=== PATIENT | male | born 1995 | race Hispanic/Latino ===

== ENCOUNTER 2017-09-11 19:30 | Emergency (ER) | payer SELFPAY ==
--- NOTE | 2017-09-11 19:50 | ER ---
Nurse's Notes [facility] Name: Stiven Kruger Jr Age: 21 yrs Sex: Male : 1995 Arrival Date: 09/11/2017 Time: 19:34 Bed 23 Private MD: Diagnosis: Abrasion of lower leg;Local infection of the skin and subcutaneous tissue, unspecified Presentation: 09/11 19:40 Presenting complaint: Patient states: left leg itching and pain due to abrasions from ak1 work boots X1 week. pt with steady gait to ER23. Transition of care: patient was not received from another setting of care. Onset of symptoms is unknown. Initial Sepsis Screen: Does the patient meet any 2 criteria? No. Patient's initial sepsis screen is negative. Does the patient have a suspected source of infection? No. Patient's initial sepsis screen is negative. Care prior to arrival: None. 19:40 Method Of Arrival: Ambulatory ak1 19:40 Acuity: GALA 4 ak1 Triage Assessment: 19:41 General: Appears in no apparent distress. Behavior is calm, cooperative. Pain: ak1 Complains of pain in left leg. EENT: No signs and/or symptoms were reported regarding the EENT system. Neuro: No deficits noted. Cardiovascular: No deficits noted. Respiratory: No deficits noted. GI: No signs and/or symptoms were reported involving the gastrointestinal system. : No signs and/or symptoms were reported regarding the genitourinary system. Derm: Reports itching, pain. Musculoskeletal: No signs and/or symptoms reported regarding the musculoskeletal system. Historical: - Allergies: 19:41 No Known Allergies; ak1 - Home Meds: 19:41 None [Active]; ak1 - PMHx: 19:41 None; ak1 - PSHx: 19:41 None; ak1 - Immunization history:: Adult Immunizations unknown. - Social history:: Smoking status: Patient uses tobacco products, denies chronic smoking, but will smoke occasionally. Screenin:43 Abuse screen: Denies threats or abuse. Denies injuries from another. Nutritional ak1 screening: No deficits noted. Tuberculosis screening: No symptoms or risk factors identified. Fall Risk None identified. Assessment: 19:42 General: Appears in no apparent distress. comfortable, Behavior is calm, cooperative, mb3 appropriate for age. Pain: Denies pain. Neuro: No deficits noted. Cardiovascular: No deficits noted. Respiratory: No deficits noted. Respiratory effort is even, unlabored, Respiratory pattern is regular, symmetrical. GI: No signs and/or symptoms were reported involving the gastrointestinal system. : No signs and/or symptoms were reported regarding the genitourinary system. Derm: Reports itching, pain Pain is present only when walking to lower left leg, itching present around wound to left kline. Musculoskeletal: Swelling present in left kline. Injury Description: Abrasion sustained to left kline is pt states was itching and scratched kline open. Wound is aprox 1.5 cm wide and aprox 8 cm long with uneven borders. Vital Signs: 19:41 BP 158 / 82; Pulse 98; Resp 18; Temp 98.7(O); Pulse Ox 98% on R/A; Weight 131.54 kg ak1 (R); Height 6 ft. 2 in. (187.96 cm) (R); Pain 5/10; 19:59 BP 139 / 57; Pulse 93; mb3 19:41 Body Mass Index 37.23 (131.54 kg, 187.96 cm) ak1 ED Course: 19:34 Patient arrived in ED. do 19:40 Shaquille Arredondo MD is Attending Physician. gs 19:41 Cheryl Yoder FNP-C is PHCP. kb 19:41 Triage completed. ak1 19:41 Arm band placed on Patient placed in an exam room, on a stretcher, on pulse oximetry, ak1 Patient notified of wait time. 19:42 Philip Umana, RN is Primary Nurse. mb3 19:43 Patient has correct armband on for positive identification. Bed in low position. Call ak1 light in reach. Side rails up X 1. Pulse ox on. NIBP on. 19:43 No provider procedures requiring assistance completed. ak1 20:00 Patient did not have IV access during this emergency room visit. mb3 Administered Medications: 19:57 Drug: KeFLEX 500 mg Route: PO; mb3 19:58 Follow up: Response: No adverse reaction; No change in condition mb3 Outcome: 19:49 Discharge ordered by . kb 20:00 Discharged to home ambulatory. mb3 20:00 Condition: stable 20:00 Discharge instructions given to patient, Instructed on discharge instructions, follow up and referral plans. medication usage, Demonstrated understanding of instructions, follow-up care, medications, Prescriptions given X 1. 20:00 Patient left the ED. mb3 Signatures: Cheryl Yoder, MICHAELC RAKAN-Brenda Morales, RN RN ak1 Tamar Gilbert Gregory, MD MD Philip Umana RN RN mb3
--- NOTE | 2017-09-11 19:50 | EDPHYS ---
Physician Documentation [facility] Name: Stiven Kruger Jr Age: 21 yrs Sex: Male : 1995 Arrival Date: 09/11/2017 Time: 19:34 Bed 23 Private MD: ED Physician Shaquille Arredondo HPI: 09/11 19:42 This 21 yrs old Male presents to ER via Ambulatory with complaints of Leg Pain.kb 19:42 The patient has a laceration related to: scratched area occurred at work, and there are kb no complicating factors. The injury was accidental. The laceration(s) is(are) located on the left kline. Onset: The symptoms/episode began/occurred yesterday. Associated signs and symptoms: The patient has no apparent associated signs or symptoms. The patient has not experienced similar symptoms in the past. The patient has not recently seen a physician. Moderate sized abrasion noted to left kline due to pt scratching area . Historical: - Allergies: 19:41 No Known Allergies; ak1 - Home Meds: 19:41 None [Active]; ak1 - PMHx: 19:41 None; ak1 - PSHx: 19:41 None; ak1 - Immunization history:: Adult Immunizations unknown. - Social history:: Smoking status: Patient uses tobacco products, denies chronic smoking, but will smoke occasionally. ROS: 19:48 Constitutional: Negative for fever, chills, and weight loss, Cardiovascular: Negative kb for chest pain, palpitations, and edema, Respiratory: Negative for shortness of breath, cough, wheezing, and pleuritic chest pain, Abdomen/GI: Negative for abdominal pain, nausea, vomiting, diarrhea, and constipation, MS/Extremity: Negative for injury and deformity, Neuro: Negative for headache, weakness, numbness, tingling, and seizure. 19:48 Skin: Positive for abrasion(s), of the left kline. Exam: 19:48 Constitutional: This is a well developed, well nourished patient who is awake, alert, kb and in no acute distress. Head/Face: Normocephalic, atraumatic. Chest/axilla: Normal chest wall appearance and motion. Nontender with no deformity. No lesions are appreciated. Cardiovascular: Regular rate and rhythm with a normal S1 and S2. No gallops, murmurs, or rubs. Normal PMI, no JVD. No pulse deficits. Respiratory: Lungs have equal breath sounds bilaterally, clear to auscultation and percussion. No rales, rhonchi or wheezes noted. No increased work of breathing, no retractions or nasal flaring. Abdomen/GI: Soft, non-tender, with normal bowel sounds. No distension or tympany. No guarding or rebound. No evidence of tenderness throughout. MS/ Extremity: Pulses equal, no cyanosis. Neurovascular intact. Full, normal range of motion. Neuro: Awake and alert, GCS 15, oriented to person, place, time, and situation. Cranial nerves II-XII grossly intact. Motor strength 5/5 in all extremities. Sensory grossly intact. Cerebellar exam normal. Normal gait. 19:48 Skin: injury, abrasion(s), moderate sized abrasion noted, of the left kline. Vital Signs: 19:41 BP 158 / 82; Pulse 98; Resp 18; Temp 98.7(O); Pulse Ox 98% on R/A; Weight 131.54 kg ak1 (R); Height 6 ft. 2 in. (187.96 cm) (R); Pain 5/10; 19:59 BP 139 / 57; Pulse 93; mb3 19:41 Body Mass Index 37.23 (131.54 kg, 187.96 cm) ak1 MDM: 19:45 Patient medically screened. kb 19:47 Data reviewed: vital signs, nurses notes. Data interpreted: Pulse oximetry: on room air kb is 98 %. Interpretation: normal. Counseling: I had a detailed discussion with the patient and/or guardian regarding: the historical points, exam findings, and any diagnostic results supporting the discharge/admit diagnosis, the need for outpatient follow up, a family practitioner, to return to the emergency department if symptoms worsen or persist or if there are any questions or concerns that arise at home. Administered Medications: 19:57 Drug: KeFLEX 500 mg Route: PO; mb3 19:58 Follow up: Response: No adverse reaction; No change in condition mb3 Disposition: 09/11/17 19:49 Discharged to Home. Impression: Abrasion of lower leg, Local infection of the skin and subcutaneous tissue, unspecified. - Condition is Stable. - Discharge Instructions: Wound Infection, [id number]. - Prescriptions for Keflex 500 mg Oral Capsule - take 1 capsule by ORAL route every 8 hours for 7 days; 21 capsule. - Medication Reconciliation Form, Thank You Letter, Antibiotic Education, Prescription Opioid Use form. - Follow up: Emergency Department; When: As needed; Reason: Worsening of condition. Follow up: Private Physician; When: 2 - 3 days; Reason: Recheck today's complaints, Continuance of care, Re-evaluation by your physician. Addendum: 09/15/2017 19:50 Co-signature as Attending Physician, Shaquille Arredondo MD. g s Signatures: Cheryl Yoder, RAKAN-C [employer]-Brenda Morales RN RN ak1 Shaquille Arredondo MD MD gs Philip Umana, RN RN mb3 Corrections: (The following items were deleted from the chart) 09/11 20:00 19:49 09/11/2017 19:49 Discharged to Home. Impression: Abrasion of lower leg; Local mb3 infection of the skin and subcutaneous tissue, unspecified. Condition is Stable. Forms are Medication Reconciliation Form, Thank You Letter, Antibiotic Education, Prescription Opioid Use. Follow up: Emergency Department; When: As needed; Reason: Worsening of condition. Follow up: Private Physician; When: 2 - 3 days; Reason: Recheck today's complaints, Continuance of care, Re-evaluation by your physician. kb
[2017-09-11] MEDS ORDERED: CEPHALEXIN 250 MG CAP ONE (19:53)
== END 2017-09-11 20:00 | disposition home or self-care (01) ==
LOC: ER 19:30
DX: S80.812A Abrasion, left lower leg, initial encounter (principal); X58.XXXA Exposure to other specified factors, initial encounter; Y92.89 Other specified places as the place of occurrence of the external cause
CPT/HCPCS: 99283

== ENCOUNTER 2017-09-28 18:13 | Emergency (ER) | payer SELFPAY ==
[2017-09-28 20:21] LABS: Absolute Lymphocytes (CBC) 2.6 K/uL (0.7-4.9); Absolute Monocytes 0.6 K/uL (0.1-1.3); Absolute Neutrophil 5.5 K/uL (1.8-8.0); Basophils % 0.3 % (0-1.3); Eosinophils % 2.6 % (0-4.4); Hematocrit 42.9 % (39.6-49.0); Lymphocytes % 28.7 % (15.3-44.8); MCV 86.2 fL (80-100); MPV 7.9 fL (7.6-11.3); Monocytes % 7.2 % (3.3-12.3); RBC Red Blood Cell Count 4.97 M/uL (4.33-5.43)
[2017-09-28 20:27] LABS: Urine Blood NEGATIVE (NEG); Urine Glucose NEGATIVE (NEG); Urine Protein NEGATIVE (NEG); Urine Specific Gravity 1.025 (1.005-1.030); Urine pH 6.5 (5.0-7.0)
[2017-09-28 20:32] LABS: Bicarbonate 27 mEq/L (21-31); Glucose Level 94 mg/dL (65-120); Lipase 17 U/L (22-51); Potassium 3.9 mEq/L (3.6-5.0); Sodium Level 139 mEq/L (135-145)
[2017-09-28 20:39] LABS: ALT/SGPT 44 IU/L (10-60); AST/SGOT 30 IU/L (10-42); Albumin 4.7 g/dL (3.2-5.5); Alkaline Phosphatase 65 IU/L (42-121); Amylase Level 34 U/L (28-100); BUN Blood Urea Nitrogen 18 mg/dL (6-20); Bilirubin Direct < 0.1 mg/dL (0-0.2); Bilirubin Total 0.5 mg/dL (0.3-1.2); Protein, Total 8.5 g/dL (6.0-8.3)
[2017-09-28 20:40] LABS: Urine Bacteria <20 /HPF (NONE SEEN); Urine Culture Reflex Order NOT NEEDED; Urine RBC <5 /HPF (NONE SEEN)
[2017-09-28 20:41] LABS: Urine Mucus 1+ /HPF (NONE SEEN)
--- NOTE | 2017-09-28 21:44 | RAD REPORT ---
EXAM DESCRIPTION: RAD - Abdomen Single View - 09/28/2017 9:38 pm CLINICAL HISTORY: Pain COMPARISON: None. FINDINGS: The bowel gas pattern is non-obstructive. No evidence of free air or pneumatosis. No suspi cious calcifications. No significant bony findings. IMPRESSION: Negative examination.
--- NOTE | 2017-09-28 21:48 | ER ---
Nurse's Notes [facility] Name: Stiven Kruger Jr Age: 21 yrs Sex: Male : 1995 Arrival Date: 09/28/2017 Time: 18:15 Bed 28 Private MD: Diagnosis: Abdominal tenderness Presentation: 09/28 18:34 Presenting complaint: Patient states: "I have had a pain here (LLQ) for a few days, I lk1 think from lifting on Thursday. Today at work I was lifting some things and I felt a sharp pain in the same spot. I am not having the pain now, but I wanted to get it checked out.". Transition of care: patient was not received from another setting of care. Onset of symptoms was September 26, 2017. Risk Assessment: Do you want to hurt yourself or someone else? Patient reports no desire to harm self or others. Initial Sepsis Screen: Does the patient meet any 2 criteria? No. Patient's initial sepsis screen is negative. Does the patient have a suspected source of infection? No. Patient's initial sepsis screen is negative. Care prior to arrival: None. 18:34 Method Of Arrival: Ambulatory lk1 18:34 Acuity: GALA 3 lk1 Historical: - Allergies: 18:36 No Known Allergies; lk1 - PMHx: 18:36 None; lk1 - PSHx: 18:36 None; lk1 - Immunization history:: Adult Immunizations up to date. - Social history:: Smoking status: Patient uses tobacco products, denies chronic smoking, but will smoke occasionally. Screenin:58 Abuse screen: Denies threats or abuse. Nutritional screening: No deficits noted. tl3 Tuberculosis screening: No symptoms or risk factors identified. Fall Risk None identified. Assessment: 19:58 General: Appears in no apparent distress. comfortable, well groomed, well developed, tl3 well nourished, Behavior is calm, cooperative, appropriate for age. Pain: Complains of pain in lower left abdomen. Neuro: Level of Consciousness is awake, alert, obeys commands, Oriented to person, place, time, situation, Appropriate for age. Cardiovascular: Patient's skin is warm and dry. Respiratory: Airway is patent Trachea midline Respiratory effort is even, unlabored, Respiratory pattern is regular, symmetrical. GI: No signs and/or symptoms were reported involving the gastrointestinal system. : No signs and/or symptoms were reported regarding the genitourinary system. EENT: No signs and/or symptoms were reported regarding the EENT system. Derm: No signs and/or symptoms reported regarding the dermatologic system. Musculoskeletal: Reports pain in lower left abdomen, pt reports that he feels pressure in the lower left abdomen, with an occasional sharp pain. Was lifting equipment on Thursday, pain started on Thursday. 20:41 Reassessment: Patient appears in no apparent distress at this time. No changes from tl3 previously documented assessment. Patient and/or family updated on plan of care and expected duration. Pain level reassessed. Patient is alert, oriented x 3, equal unlabored respirations, skin warm/dry/pink. 21:15 Reassessment: Patient appears in no apparent distress at this time. No changes from tl3 previously documented assessment. Patient and/or family updated on plan of care and expected duration. Pain level reassessed. Patient is alert, oriented x 3, equal unlabored respirations, skin warm/dry/pink. 22:15 Reassessment: Patient appears in no apparent distress at this time. No changes from tl3 previously documented assessment. Patient and/or family updated on plan of care and expected duration. Pain level reassessed. Patient is alert, oriented x 3, equal unlabored respirations, skin warm/dry/pink. Vital Signs: 18:37 BP 147 / 69; Pulse 87; Resp 16; Temp 97.9(TE); Pulse Ox 98% on R/A; Weight 127.01 kg lk1 (R); Height 6 ft. 2 in. (187.96 cm) (R); Pain 0/10; 19:58 BP 117 / 61; Pulse 82; Resp 18; Pulse Ox 100% ; tl3 20:41 BP 119 / 69; Pulse 74; Resp 18; Pulse Ox 98% ; tl3 21:15 BP 132 / 61; Pulse 91; Resp 18; Pulse Ox 99% on R/A; tl3 22:15 BP 128 / 79; Pulse 72; Resp 16; Pulse Ox 100% ; tl3 18:37 Body Mass Index 35.95 (127.01 kg, 187.96 cm) lk1 ED Course: 18:15 Patient arrived in ED. rg4 18:36 Triage completed. lk1 18:38 Arm band placed on right wrist. lk1 19:20 Anam Moreno MD is Attending Physician. tw4 19:34 Estefany Asif, RN is Primary Nurse. tl3 19:58 No apparent distress. tl3 19:58 Patient has correct armband on for positive identification. tl3 19:58 No provider procedures requiring assistance completed. tl3 21:28 Patient moved to radiology via wheelchair. jb2 21:36 X-ray completed. Patient tolerated procedure well. jb2 21:36 Abdomen 1 View XRAY In Process Unspecified. EDMS 21:37 Patient moved back from radiology. jb2 22:16 IV discontinued, intact, bleeding controlled, No redness/swelling at site. Pressure tl3 dressing applied. Administered Medications: No medications were administered Outcome: 21:46 Discharge ordered by . tw4 22:16 Discharged to home ambulatory. tl3 22:16 Condition: good 22:16 Discharge instructions given to patient, Instructed on discharge instructions, follow up and referral plans. Demonstrated understanding of instructions, follow-up care. 22:16 Patient left the ED. tl3 Signatures: Dispatcher [employer] EDMS Brandyn Gaspar jb2 Esther Brunner, RN RN lk1 Kay Bang rg4 Anam Moreno MD MD tw4 Estefany Asif, RN RN tl3
--- NOTE | 2017-09-28 21:48 | EDPHYS ---
Physician Documentation [facility] Name: Stiven Kruger Jr Age: 21 yrs Sex: Male : 1995 Arrival Date: 09/28/2017 Time: 18:15 Bed 28 Private MD: ED Physician Anam Moreno HPI: 09/28 21:43 This 21 yrs old Male presents to ER via Ambulatory with complaints of tw4 abdominal pain. 21:43 The patient presents with abdominal pain in the left lower quadrant. Onset: The tw4 symptoms/episode began/occurred 3 day(s) ago. The symptoms do not radiate. Associated signs and symptoms: none. The symptoms are described as dull. Modifying factors: The symptoms are alleviated by nothing, the symptoms are aggravated by nothing. Severity of pain: At its worst the pain was moderate in the emergency department the pain is unchanged. The patient has not experienced similar symptoms in the past. Historical: - Allergies: 18:36 No Known Allergies; lk1 - PMHx: 18:36 None; lk1 - PSHx: 18:36 None; lk1 - Immunization history:: Adult Immunizations up to date. - Social history:: Smoking status: Patient uses tobacco products, denies chronic smoking, but will smoke occasionally. ROS: 21:43 Constitutional: Negative for fever, chills, and weight loss, Cardiovascular: Negative tw4 for chest pain, palpitations, and edema, Respiratory: Negative for shortness of breath, cough, wheezing, and pleuritic chest pain, Back: Negative for injury and pain, MS/Extremity: Negative for injury and deformity, Skin: Negative for injury, rash, and discoloration, Neuro: Negative for headache, weakness, numbness, tingling, and seizure. Exam: 21:43 Constitutional: This is a well developed, well nourished patient who is awake, alert, tw4 and in no acute distress. Head/Face: Normocephalic, atraumatic. Chest/axilla: Normal chest wall appearance and motion. Nontender with no deformity. No lesions are appreciated. Cardiovascular: Regular rate and rhythm with a normal S1 and S2. No gallops, murmurs, or rubs. Normal PMI, no JVD. No pulse deficits. Respiratory: Lungs have equal breath sounds bilaterally, clear to auscultation and percussion. No rales, rhonchi or wheezes noted. No increased work of breathing, no retractions or nasal flaring. 21:43 MS/ Extremity: Pulses equal, no cyanosis. Neurovascular intact. Full, normal range of motion. Neuro: Awake and alert, GCS 15, oriented to person, place, time, and situation. Cranial nerves II-XII grossly intact. Motor strength 5/5 in all extremities. Sensory grossly intact. Cerebellar exam normal. Normal gait. 21:43 Abdomen/GI: Inspection: abdomen appears normal, Bowel sounds: diminished, Palpation: mild abdominal tenderness, in the left lower quadrant. Vital Signs: 18:37 BP 147 / 69; Pulse 87; Resp 16; Temp 97.9(TE); Pulse Ox 98% on R/A; Weight 127.01 kg lk1 (R); Height 6 ft. 2 in. (187.96 cm) (R); Pain 0/10; 19:58 BP 117 / 61; Pulse 82; Resp 18; Pulse Ox 100% ; tl3 20:41 BP 119 / 69; Pulse 74; Resp 18; Pulse Ox 98% ; tl3 21:15 BP 132 / 61; Pulse 91; Resp 18; Pulse Ox 99% on R/A; tl3 22:15 BP 128 / 79; Pulse 72; Resp 16; Pulse Ox 100% ; tl3 18:37 Body Mass Index 35.95 (127.01 kg, 187.96 cm) lk1 MDM: 19:20 Patient medically screened. tw4 21:43 Differential diagnosis: diverticulitis, Irritable bowel syndrome, non-specific abd tw4 pain, Peritonitis, Ureterolithiasis, urinary tract infection. Data reviewed: vital signs, nurses notes. Data interpreted: Pulse oximetry: Interpretation: normal. Test interpretation: by ED physician or midlevel provider: plain radiologic studies. Counseling: I had a detailed discussion with the patient and/or guardian regarding: the historical points, exam findings, and any diagnostic results supporting the discharge/admit diagnosis, lab results, radiology results. Special discussion: Based on the patient's Hx, exam, and Dx evaluation, there is no indication for emergent surgery or inpatient Tx. It is understood by the patient/guardian that if the Sx's persist or worsen they need to return immediately for re-evaluation. I discussed with the patient/guardian in detail that at this point there is no indication for admission to the hospital. It is understood, however, that if the symptoms persist or worsen the patient needs to return immediately for re-evaluation. 09/28 19:42 Order name: Amylase, Serum; Complete Time: 21:[address] [facility] 09/28 19:42 Order name: Basic Metabolic Panel; Complete Time: 21:[address] [facility] 09/28 19:42 Order name: CBC with Diff; Complete Time: 21:[address] [facility] 09/28 21:42 Interpretation: Within normal limits. 09/28 19:42 Order name: Creatinine for Radiology; Complete Time: 21:[address] [facility] 09/28 21:42 Interpretation: Within normal limits. 09/28 19:42 Order name: Hepatic Function; Complete Time: 21:[address] [facility] 09/28 21:42 Interpretation: Normal except: TP 8.5; GLOB 3.8. [facility] 09/28 19:42 Order name: Lipase; Complete Time: 21:[address] [facility] 09/28 21:42 Interpretation: Within normal limits: LIP 17. [facility] 09/28 19:42 Order name: Urine Microscopic Only; Complete Time: 21:[address] [facility] 09/28 19:42 Order name: IV Saline Lock; Complete Time: 20:[address] [facility] 09/28 19:42 Order name: Labs collected and sent; Complete Time: 20:[address] [facility] 09/28 19:42 Order name: Urine Dipstick-Ancillary (obtain specimen); Complete Time: 20:[address] [facility] 09/28 20:01 Order name: Urine Dipstick--Ancillary (enter results); Complete Time: 21:42 [facility] 09/28 20:26 Order name: Abdomen 1 View XRAY Administered Medications: No medications were administered Disposition: 09/28/17 21:46 Discharged to Home. Impression: Abdominal tenderness. - Condition is Stable. - Discharge Instructions: Abdominal Pain, Adult, [id number]. - Medication Reconciliation Form, Thank You Letter, Antibiotic Education, Prescription Opioid Use, Work release form form. - Follow up: Private Physician; When: As needed; Reason: If symptoms return, Recheck today's complaints, Continuance of care, Re-evaluation by your physician. - Problem is new. - Symptoms have improved. Signatures: Dispatcher [employer] Esther Curry RN RN lk1 Anam Moreno MD MD tw4 Estefany Asif, RASHEL RN tl3 Corrections: (The following items were deleted from the chart) 21:44 21:43 This 21 yrs old Male presents to ER via Ambulatory with complaints of tw4 Flank Pain. tw4 22:16 21:46 09/28/2017 21:46 Discharged to Home. Impression: Abdominal tenderness. Condition tl3 is Stable. Forms are Medication Reconciliation Form, Thank You Letter, Antibiotic Education, Prescription Opioid Use. Follow up: Private Physician; When: As needed; Reason: If symptoms return, Recheck today's complaints, Continuance of care, Re-evaluation by your physician. Problem is new. Symptoms have improved. tw4
== END 2017-09-28 22:16 | disposition home or self-care (01) ==
LOC: ER 18:13
DX: R10.814 Left lower quadrant abdominal tenderness (principal); Z72.0 Tobacco use
CPT/HCPCS: 36415; 74018; 80048; 80076; 81003; 81015; 82150; 83690; 85025; 99283

== ENCOUNTER 2018-02-09 14:27 | Emergency (ER) | payer OTHER, SELFPAY ==
[2018-02-09 16:22] LABS: Urine Bacteria <20 /HPF (NONE SEEN); Urine RBC <5 /HPF (NONE SEEN)
[2018-02-09 16:23] LABS: Urine Culture Reflex Order NOT NEEDED; Urine Mucus MOD /HPF (NONE SEEN)
[2018-02-09 17:05] LABS: Urine Blood NEGATIVE (NEG); Urine Glucose NEGATIVE (NEG); Urine Protein 1+ (NEG); Urine Specific Gravity >1.030 (1.005-1.030)
--- NOTE | 2018-02-09 18:25 | RAD REPORT ---
EXAM DESCRIPTION: US - Scrotum Testicles - 02/09/2018 3:57 pm CLINICAL HISTORY: left testicular pain COMPARISON: No comparisons FINDINGS: The right testicle 4.2 x 2.7 x 2.6 cm. No intratesticular masses or evidence of testicular torsion. The left testicle 4.3 x 2.9 x 2.5 cm. No intratesticular masses or evidence of testicular torsion. Both epididymides are normal in size and appearance. No pathologic fluid collections. IMPRESSION: Unremarkable study.
--- NOTE | 2018-02-09 18:29 | EDPHYS ---
Physician Documentation [facility] Name: Stiven Kruger Jr Age: 22 yrs Sex: Male : 1995 Arrival Date: 02/09/2018 Time: 14:30 Bed Ultrasound Private MD: ED Physician Olivia Kirkland HPI: 02/09 16:42 This 22 yrs old Male presents to ER via Ambulatory with complaints of Left pm1 Testicular Pain. 16:42 The patient presents with left testicular pain. Onset: The symptoms/episode pm1 began/occurred 2 week(s) ago. Modifying factors: The symptoms are alleviated by nothing, the symptoms are aggravated by nothing. Associated signs and symptoms: Pertinent negatives: abdominal pain, diarrhea, dysuria, fever, nausea, vomiting. Severity of symptoms: in the emergency department the symptoms are unchanged. The patient has not experienced similar symptoms in the past. The patient has not recently seen a physician. Historical: - Allergies: 14:41 No Known Allergies; ss - Home Meds: 14:42 Augmentin Oral [Active]; Prednisone Oral [Active]; ss - PMHx: 14:41 None; ss - PSHx: 14:41 None; ss - Immunization history:: Adult Immunizations up to date. - Social history:: Smoking status: Patient uses tobacco products, denies chronic smoking, but will smoke occasionally. - Ebola Screening: : Patient negative for fever greater than or equal to 101.5 degrees Fahrenheit, and additional compatible Ebola Virus Disease symptoms Patient denies exposure to infectious person Patient denies travel to an Ebola-affected area in the 21 days before illness onset. ROS: 16:42 Constitutional: Negative for fever, chills, and weight loss, Eyes: Negative for injury, pm1 pain, redness, and discharge, ENT: Negative for injury, pain, and discharge, Neck: Negative for injury, pain, and swelling, Cardiovascular: Negative for chest pain, palpitations, and edema, Respiratory: Negative for shortness of breath, cough, wheezing, and pleuritic chest pain, Abdomen/GI: Negative for abdominal pain, nausea, vomiting, diarrhea, and constipation, Back: Negative for injury and pain. 16:42 MS/Extremity: Negative for injury and deformity, Skin: Negative for injury, rash, and discoloration, Neuro: Negative for headache, weakness, numbness, tingling, and seizure. 16:42 : Positive for testicular pain Negative for urinary symptoms, flank pain, burning with urination, difficulty urinating, penile discharge, penile pain. Exam: 16:42 Constitutional: This is a well developed, well nourished patient who is awake, alert, pm1 and in no acute distress. Head/Face: Normocephalic, atraumatic. Eyes: Pupils equal round and reactive to light, extra-ocular motions intact. Lids and lashes normal. Conjunctiva and sclera are non-icteric and not injected. Cornea within normal limits. Periorbital areas with no swelling, redness, or edema. ENT: Nares patent. No nasal discharge, no septal abnormalities noted. Tympanic membranes are normal and external auditory canals are clear. Oropharynx with no redness, swelling, or masses, exudates, or evidence of obstruction, uvula midline. Mucous membranes moist. Neck: Trachea midline, no thyromegaly or masses palpated, and no cervical lymphadenopathy. Supple, full range of motion without nuchal rigidity, or vertebral point tenderness. No Meningismus. Chest/axilla: Normal chest wall appearance and motion. Nontender with no deformity. No lesions are appreciated. Cardiovascular: Regular rate and rhythm with a normal S1 and S2. No gallops, murmurs, or rubs. Normal PMI, no JVD. No pulse deficits. Respiratory: Lungs have equal breath sounds bilaterally, clear to auscultation and percussion. No rales, rhonchi or wheezes noted. No increased work of breathing, no retractions or nasal flaring. Abdomen/GI: Soft, non-tender, with normal bowel sounds. No distension or tympany. No guarding or rebound. No evidence of tenderness throughout. Back: No spinal tenderness. No costovertebral tenderness. Full range of motion. 16:42 Skin: Warm, dry with normal turgor. Normal color with no rashes, no lesions, and no evidence of cellulitis. MS/ Extremity: Pulses equal, no cyanosis. Neurovascular intact. Full, normal range of motion. 16:42 : CVA tenderness, is absent, Male external genitalia: Patient is not circumisioned. penile discharge, is absent, swelling: is not appreciated, tenderness, focal point area left testicle. 16:42 Neuro: Orientation: is normal, Motor: is normal, moves all fours, Sensation: is normal, no obvious gross deficits, Gait: is steady, at a normal pace, without difficulty. Vital Signs: 14:42 BP 139 / 69; Pulse 91; Resp 16; Temp 98.4(TE); Pulse Ox 98% on R/A; Weight 129.27 kg; ss Height 6 ft. 2 in. (187.96 cm); Pain 5/10; 16:25 BP 135 / 78; Pulse 86; Resp 18; Pulse Ox 100% on R/A; Pain 5/10; ed1 18:18 BP 128 / 74; Pulse 83; Resp 17; Pulse Ox 100% on R/A; Pain 5/10; ed1 14:42 Body Mass Index 36.59 (129.27 kg, 187.96 cm) ss MDM: 15:14 Patient medically screened. pm1 16:47 Data reviewed: vital signs. Data interpreted: Pulse oximetry: on room air is 100 %. pm1 Interpretation: normal. 18:27 Counseling: I had a detailed discussion with the patient and/or guardian regarding: the pm1 historical points, exam findings, and any diagnostic results supporting the discharge/admit diagnosis, lab results, radiology results, the need for outpatient follow up, to return to the emergency department if symptoms worsen or persist or if there are any questions or concerns that arise at home. 02/09 15:30 Order name: Urine Microscopic Only; Complete Time: 17:05 pm1 02/09 15:41 Order name: Urine Dipstick--Ancillary (enter results); Complete Time: 17:06 bd 02/09 15:30 Order name: US Scrotum Testicles; Complete Time: 18:27 pm1 02/09 15:30 Order name: Urine Dipstick-Ancillary (obtain specimen); Complete Time: 15:41 pm1 Administered Medications: 18:39 Not Given (Patient Refused): [place] 5 mg-325 mg 1 tabs PO once ed1 Disposition: 02/09/18 18:28 Discharged to Home. Impression: Left scrotal pain - possible left varicocele. - Condition is Stable. - Discharge Instructions: Testicular Self-Exam, Scrotal Masses. - Prescriptions for Tylenol- Codeine #3 300-30 mg Oral Tablet - take 2 tablets by ORAL route every 6 hours As needed; 20 tablet. - Work release form, Medication Reconciliation Form, Thank You Letter, Antibiotic Education, Prescription Opioid Use form. - Follow up: Emergency Department; When: As needed; Reason: Worsening of condition. Follow up: Private Physician; When: 2 - 3 days; Reason: Recheck today's complaints, Continuance of care, Re-evaluation by your physician. Follow up: Judith Chavez MD; When: 2 - 3 days; Reason: Recheck today's complaints, Continuance of care, Re-evaluation by your physician. - Problem is new. - Symptoms have improved. Signatures: Dispatcher [employer] EDMS Hilda Parkinson RN RN ss Marie Romero, PATIENT SUPPORT ASSISTANT PATIENT SUPPORT ASSISTANT ed1 Tommy Bowie, DAYCARE TEACHER DAYCARE TEACHER pm1 Corrections: (The following items were deleted from the chart) 18:31 18:28 02/09/2018 18:28 Discharged to Home. Impression: Left testicular pain. Condition pm1 is Stable. Forms are Medication Reconciliation Form, Thank You Letter, Antibiotic Education, Prescription Opioid Use. Follow up: Emergency Department; When: As needed; Reason: Worsening of condition. Follow up: Private Physician; When: 2 - 3 days; Reason: Recheck today's complaints, Continuance of care, Re-evaluation by your physician. Problem is new. Symptoms have improved. pm1 18:32 18:31 02/09/2018 18:28 Discharged to Home. Impression: Left scrotal pain - possible pm1 left varicocele. Condition is Stable. Discharge Instructions: Testicular Self-Exam, Scrotal Masses. Forms are Medication Reconciliation Form, Thank You Letter, Antibiotic Education, Prescription Opioid Use. Follow up: Emergency Department; When: As needed; Reason: Worsening of condition. Follow up: Private Physician; When: 2 - 3 days; Reason: Recheck today's complaints, Continuance of care, Re-evaluation by your physician. Problem is new. Symptoms have improved. pm1 18:40 18:32 02/09/2018 18:28 Discharged to Home. Impression: Left scrotal pain - possible ed1 left varicocele. Condition is Stable. Discharge Instructions: Testicular Self-Exam, Scrotal Masses. Prescriptions for Tylenol-Codeine #3 300-30 mg Oral Tablet - take 2 tablets by ORAL route every 6 hours As needed; 20 tablet. and Forms are Medication Reconciliation Form, Thank You Letter, Antibiotic Education, Prescription Opioid Use. Follow up: Emergency Department; When: As needed; Reason: Worsening of condition. Follow up: Private Physician; When: 2 - 3 days; Reason: Recheck today's complaints, Continuance of care, Re-evaluation by your physician. Follow up: Judith Chavez; When: 2 - 3 days; Reason: Recheck today's complaints, Continuance of care, Re-evaluation by your physician. Problem is new. Symptoms have improved. pm1
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
== END 2018-02-09 18:40 | disposition home or self-care (01) ==
LOC: ER 14:27
DX: N50.812 Left testicular pain (principal); Z72.0 Tobacco use
CPT/HCPCS: 76870; 81003; 81015; 99284

== ENCOUNTER 2018-06-14 19:40 | Emergency (ER) | payer OTHER ==
--- NOTE | 2018-06-14 20:59 | RAD REPORT ---
EXAM DESCRIPTION: US - Scrotum Testicles - 06/14/2018 8:45 pm CLINICAL HISTORY: Left Scrotal pain COMPARISON: February 2018 FINDINGS: Right testicle measures 4.5 x 2.3 x 2.7 centimeters. Echotexture is homogeneous. Normal bl ood flow Left testicle measures 4.4 x 2.1 x 3.4 centimeters. Echotexture is homogeneous. Normal blood flow The epididymides are normal in size and echotexture. Normal blood flow is seen. IMPRESSION: Unremarkable exam
--- NOTE | 2018-06-14 22:19 | ER ---
Nurse's Notes [facility] Name: Stiven Kruger Jr Age: 22 yrs Sex: Male : 1995 Arrival Date: 06/14/2018 Time: 19:44 Bed 12 Private MD: Diagnosis: Left testicular pain Presentation: 06/14 20:15 Presenting complaint: Patient states: that he is having left testicular pain that fc started 3 weeks ago but started to get worse today. Denies any penile discharge or problems urinating. Was seen here last February for the same issue. Transition of care: patient was not received from another setting of care. Onset of symptoms was May 2018. Risk Assessment: Do you want to hurt yourself or someone else? Patient reports no desire to harm self or others. Initial Sepsis Screen: Does the patient meet any 2 criteria? HR > 90 bpm. Yes Does the patient have a suspected source of infection? No. Patient's initial sepsis screen is negative. Care prior to arrival: None. 20:15 Method Of Arrival: Ambulatory fc 20:15 Acuity: GALA 3 fc Triage Assessment: 20:18 General: Appears uncomfortable, Behavior is calm, cooperative, appropriate for age. fc Pain: Complains of pain in pelvis Pain currently is 4 out of 10 on a pain scale. Quality of pain is described as aching, Pain began 3 weeks ago Is continuous, Aggravated by repositioning, weight bearing. EENT: No deficits noted. Neuro: Level of Consciousness is awake, alert, obeys commands, Oriented to person, place, time, situation, Appropriate for age. Cardiovascular: No deficits noted. Respiratory: No deficits noted. GI: No deficits noted. : Reports left testicular pain. Derm: Skin is pink, warm \T\ dry. Musculoskeletal: Circulation, motion, and sensation intact. Capillary refill < 3 seconds, Range of motion: intact in all extremities. Historical: - Allergies: 20:18 No Known Allergies; fc - Home Meds: 20:18 None [Active]; fc - PMHx: 20:18 None; fc - PSHx: 20:18 None; fc - Immunization history:: Last tetanus immunization: unknown, Flu vaccine is not up to date. - Social history:: Smoking status: Patient uses tobacco products, denies chronic smoking, but will smoke occasionally, Patient uses alcohol, occasionally. Patient/guardian denies using street drugs. - Ebola Screening: : Patient negative for fever greater than or equal to 101.5 degrees Fahrenheit, and additional compatible Ebola Virus Disease symptoms Patient denies exposure to infectious person Patient denies travel to an Ebola-affected area in the 21 days before illness onset. Screenin:34 Abuse screen: Denies threats or abuse. Denies injuries from another. Nutritional rv screening: No deficits noted. Tuberculosis screening: No symptoms or risk factors identified. Fall Risk None identified. Assessment: 21:33 General: Appears in no apparent distress. comfortable, Behavior is calm, cooperative. rv Pain: Complains of pain in testicles. Neuro: Level of Consciousness is awake, alert, obeys commands, Oriented to person, place, time, situation. Cardiovascular: Capillary refill < 3 seconds. Respiratory: Airway is patent. GI: No signs and/or symptoms were reported involving the gastrointestinal system. : No signs and/or symptoms were reported regarding the genitourinary system. EENT: No signs and/or symptoms were reported regarding the EENT system. Derm: Skin is intact. Musculoskeletal: No signs and/or symptoms reported regarding the musculoskeletal system. Vital Signs: 20:19 BP 130 / 82; Pulse 89; Resp 18; Temp 98.4(O); Pulse Ox 98% on R/A; Weight 127.01 kg fc (R); Height 6 ft. 2 in. (187.96 cm) (R); Pain 4/10; 22:34 BP 127 / 88; Pulse 86; Resp 18 S; Pulse Ox 99% on R/A; rv 20:19 Body Mass Index 35.95 (127.01 kg, 187.96 cm) ED Course: 19:44 Patient arrived in ED. es 20:17 Triage completed. fc 20:19 Arm band placed on Patient placed in waiting room. fc 20:45 US Scrotum Testicles In Process Unspecified. EDMS 20:46 Ultrasound completed. Patient tolerated well. Patient taken to lobby. cy 21:14 Cheryl Yoder FNP-C is PHCP. kb 21:14 Shaquille Arredondo MD is Attending Physician. kb 21:34 Patient has correct armband on for positive identification. Bed in low position. Call rv light in reach. Pulse ox on. NIBP on. 22:33 No provider procedures requiring assistance completed. Patient did not have IV access rv during this emergency room visit. Administered Medications: No medications were administered Outcome: 22:19 Discharge ordered by . hillary 22:34 Discharged to home ambulatory. rv 22:34 Condition: good 22:34 Discharge instructions given to patient, Instructed on discharge instructions, follow up and referral plans. Demonstrated understanding of instructions, follow-up care. 22:34 Patient left the ED. rv Signatures: Dispatcher [employer] EDCheryl Bonner, [employer]-C [employer]-Aimee Galvez Felicia, RN RN Juventino Matamoros Ronaldo, RN RN rv
--- NOTE | 2018-06-14 22:19 | EDPHYS ---
Physician Documentation [facility] Name: Stiven Kruger Jr Age: 22 yrs Sex: Male : 1995 Arrival Date: 06/14/2018 Time: 19:44 Bed 12 Private MD: ED Physician Shaquille Arredondo HPI: 06/14 22:17 This 22 yrs old Male presents to ER via Ambulatory with complaints of kb Testicular Pain. 22:17 The patient presents with scrotal pain, of the left side. Onset: The symptoms/episode kb began/occurred 4 month(s) ago. Modifying factors: The symptoms are alleviated by nothing, the symptoms are aggravated by nothing. Associated signs and symptoms: The patient has no apparent associated signs or symptoms. Severity of symptoms: At their worst the symptoms were mild, in the emergency department the symptoms are unchanged. The patient has not experienced similar symptoms in the past. The patient has not recently seen a physician. Historical: - Allergies: 20:18 No Known Allergies; fc - Home Meds: 20:18 None [Active]; fc - PMHx: 20:18 None; fc - PSHx: 20:18 None; fc - Immunization history:: Last tetanus immunization: unknown, Flu vaccine is not up to date. - Social history:: Smoking status: Patient uses tobacco products, denies chronic smoking, but will smoke occasionally, Patient uses alcohol, occasionally. Patient/guardian denies using street drugs. - Ebola Screening: : Patient negative for fever greater than or equal to 101.5 degrees Fahrenheit, and additional compatible Ebola Virus Disease symptoms Patient denies exposure to infectious person Patient denies travel to an Ebola-affected area in the 21 days before illness onset. ROS: 22:15 Constitutional: Negative for fever, chills, and weight loss, Cardiovascular: Negative kb for chest pain, palpitations, and edema, Respiratory: Negative for shortness of breath, cough, wheezing, and pleuritic chest pain, Abdomen/GI: Negative for abdominal pain, nausea, vomiting, diarrhea, and constipation, MS/Extremity: Negative for injury and deformity, Skin: Negative for injury, rash, and discoloration, Neuro: Negative for headache, weakness, numbness, tingling, and seizure. 22:15 : Positive for testicular pain Negative for injury or acute deformity, urinary symptoms, urinary frequency, small amounts, hematuria, pelvic pain, flank pain, burning with urination, difficulty urinating, bladder incontinence, foul smelling urine, penile discharge, penile pain. Exam: 22:15 Constitutional: This is a well developed, well nourished patient who is awake, alert, kb and in no acute distress. Head/Face: Normocephalic, atraumatic. Chest/axilla: Normal chest wall appearance and motion. Nontender with no deformity. No lesions are appreciated. Cardiovascular: Regular rate and rhythm with a normal S1 and S2. No gallops, murmurs, or rubs. Normal PMI, no JVD. No pulse deficits. Respiratory: Lungs have equal breath sounds bilaterally, clear to auscultation and percussion. No rales, rhonchi or wheezes noted. No increased work of breathing, no retractions or nasal flaring. Abdomen/GI: Soft, non-tender, with normal bowel sounds. No distension or tympany. No guarding or rebound. No evidence of tenderness throughout. Back: No spinal tenderness. No costovertebral tenderness. Full range of motion. Skin: Warm, dry with normal turgor. Normal color with no rashes, no lesions, and no evidence of cellulitis. MS/ Extremity: Pulses equal, no cyanosis. Neurovascular intact. Full, normal range of motion. Neuro: Awake and alert, GCS 15, oriented to person, place, time, and situation. Cranial nerves II-XII grossly intact. Motor strength 5/5 in all extremities. Sensory grossly intact. Cerebellar exam normal. Normal gait. Vital Signs: 20:19 BP 130 / 82; Pulse 89; Resp 18; Temp 98.4(O); Pulse Ox 98% on R/A; Weight 127.01 kg fc (R); Height 6 ft. 2 in. (187.96 cm) (R); Pain 4/10; 22:34 BP 127 / 88; Pulse 86; Resp 18 S; Pulse Ox 99% on R/A; rv 20:19 Body Mass Index 35.95 (127.01 kg, 187.96 cm) fc MDM: 21:28 Patient medically screened. kb 22:14 Data reviewed: vital signs, nurses notes. Data interpreted: Pulse oximetry: on room air kb is 98 %. Interpretation: normal. Counseling: I had a detailed discussion with the patient and/or guardian regarding: the historical points, exam findings, and any diagnostic results supporting the discharge/admit diagnosis, lab results, radiology results, the need for outpatient follow up, a urologist, to return to the emergency department if symptoms worsen or persist or if there are any questions or concerns that arise at home. ED course: Pt has appt with Dr Chavez on 06/17/18. 06/14 22:13 Order name: Urine Dipstick--Ancillary (enter results) ar5 06/14 20:20 Order name: US Scrotum Testicles; Complete Time: 21:13 06/14 21:14 Order name: Urine Dipstick-Ancillary (obtain specimen); Complete Time: 21:33 kb Administered Medications: No medications were administered Disposition: 06/14/18 22:19 Discharged to Home. Impression: Left testicular pain. - Condition is Stable. - Discharge Instructions: Testicular Self-Exam, [id number]. - Medication Reconciliation Form, Thank You Letter, Antibiotic Education, Prescription Opioid Use, Work release form form. - Follow up: Emergency Department; When: As needed; Reason: Worsening of condition. Follow up: Private Physician; When: 2 - 3 days; Reason: Recheck today's complaints, Continuance of care, Re-evaluation by your physician. Addendum: 06/21/2018 07:21 Co-signature as Attending Physician, Shaquille Arredondo MD. g s Signatures: Dispatcher [employer] EDMS Cheryl Yoder, SAHIL BLEDSOE-Catrachita Johnson RN RN fc Starr, Gregory, MD MD Aron George, RN RN rv Corrections: (The following items were deleted from the chart) 06/14 22:15 22:15 : Positive for testicular pain hillary kb 22:34 22:19 06/14/2018 22:19 Discharged to Home. Impression: Left testicular pain. Condition rv is Stable. Forms are Medication Reconciliation Form, Thank You Letter, Antibiotic Education, Prescription Opioid Use. Follow up: Emergency Department; When: As needed; Reason: Worsening of condition. Follow up: Private Physician; When: 2 - 3 days; Reason: Recheck today's complaints, Continuance of care, Re-evaluation by your physician. kb
[2018-06-15 00:33] LABS: Urine Blood TRACE (NEG); Urine Glucose NEGATIVE (NEG); Urine Protein NEGATIVE (NEG); Urine Specific Gravity >1.030 (1.005-1.030); Urine pH 5.5 (5.0-7.0)
== END 2018-06-14 22:34 | disposition home or self-care (01) ==
LOC: ER 19:40
DX: N50.812 Left testicular pain (principal); Z72.0 Tobacco use
CPT/HCPCS: 76870; 81003; 99283